=== PATIENT | male | born 2005 | race Caucasian/White ===

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

== ENCOUNTER 2023-07-19 06:39 | Day surgery (SDC) | payer OTHER, SELFPAY ==
[2023-07-12 12:53] VITALS: BMI 23.0
[2023-07-19] VITALS (9 sets, daily range): BP systolic 88–121; BP diastolic 48–75; PULSE 60–87; RESP 12–18; TEMP 36.1–36.4; O2SAT 95–100; BMI 23.7
--- NOTE | 2023-07-19 | PATH_ITS ---
[facility] Accession Number: [id number] No. of containers..01 Tissue . 01 Material submitted: . gluteal cleft - GLUTEAL CLEFT . 01 Diagnosis: A. Gluteal Cleft, Excision: Skin with deep dermal sinus tract with abscess formation, associated extensive chronic inflammation, stromal fibrosis, and evidence of hemorrhage with reactive change, consistent with pilonidal cyst. No evidence of dysplasia or malignancy. MRV 07/26/2023 1652 Local . 01 Electronically signed: . Bria Infante MD, Pathologist NPI- [id number] . 01 Gross description: . The specimen is received in formalin labeled with the patient's name, , and gluteal cleft, consists of an unoriented ellipse of skin measuring 13.6 x 3.0 cm and 1.0 cm thick. The margin is inked blue. Sectioning reveals a cystic structure filled with brown grumous material and hair running longitudinally across a length of 6.9 cm. A resources representative section is submitted in cassette A1. ([id number]) /MRV 07/21/2023 1300 Local . 01 Pathologist provided ICD-10: L05.91 . 01 CPT . 016718 Specimen Comment: A courtesy copy of this report has been sent to [phone] Performed at: 01 [facility] [address] [place] [address], [place], [place] [id number] MD Aftab Dickerson MD Phone: [phone]
[2023-07-19] MEDS: LACTATED RINGERS 1,000 ML 42 ML IV ×2 (07:35→08:41)
--- NOTE | 2023-07-19 07:36 | P.HP_ITS ---
History of Present Illness History of Present Illness Date Patient Seen: 07/19/23 Time Patient Seen: 07:36 Chief complaint: Excision of Pilonidal Cyst Narrative: Jose is a 17-year-old man with a disease. He was consented for a [place] procedure. Please see the office note from December for details. He has had some additional lesions erupt from the gluteal cleft since then. [facility] Medical History Bilateral impacted cerumen Pilonidal cyst Spondylolisthesis at L5-S1 level Social History household members: family Smoking Status: Current some day smoker alcohol intake: current Meds Home Medications and Allergies Home Medications Medication Instructions Recorded Confirmed Type No Known Home Medications 12/07/22 07/19/23 History Allergies Allergy/AdvReac Type Severity Reaction Status Date / Time amoxicillin [AMOXICILLIN] Allergy Mild RASH Verified 07/19/23 07:32 Exam Vital Signs (past 8 hours): - 07/19/23 07:24 Temperature 97.2 F L Pulse Rate 72 Respiratory Rate 18 Blood Pressure 106/75 Pulse Oximetry 100 Oxygen Delivery Method Room Air Oxygen Delivery Method Room Air Const General: healthy appearing Assessment & Plan Assessment and plan (1) Pilonidal cyst: Status: Acute Plan We reviewed the risks and benefits of [place] procedure as well as the expected recovery and he would like to proceed.
--- NOTE | 2023-07-19 08:18 | SUR.OPER ---
Prone on padded OR bed, head in foam head support, gel chest rolls, gel pad under knees, pillow under lower legs, toes free of pressure, arms secured on padded arm boards at <90 degrees abduction. Safety belt at thigh.
[2023-07-19] MEDS: BUPIVACAINE 0.5% (PF) 30 ML, EPINEPHrine 0.15 MG INJ (08:33)
--- NOTE | 2023-07-19 09:20 | P.OP_ITS ---
Operative Date/Time/Diagnoses Date of procedure: 07/19/23 Time of procedure: 09:20 Pre-op diagnosis: Pilonidal disease Post-op diagnosis: same Procedure & Clinicians Procedure: [place] procedure Same procedure as scheduled: Yes Surgeon: Nasir Franks Anesthesia Type: General Operative Notes Procedure in detail: The patient was marked in preop and lines were drawn to delineate the gluteal cleft. The patient was then brought to the operating room and general endotrac heal anesthesia was induced. The patient was placed prone on the or table. The buttocks were taped to the rails of the table. The gluteal cleft and anus were prepped with Betadine and draped in the usual fashion. A time-out was performed. We made the Michael incision with the specimen including the gluteal cleft itself and skin to the right side of the gluteal cleft. We created a flap on the left side. There were many hairs in the subcutaneous tissue. There was chronic appearing granulation tissue mostly to the left side of the gluteal cleft. We injected additional Marcaine in the deepest aspect of the wound as well as in the subcutaneous tissue. A 15 Sinhala round [place] drain was placed into the wound and brought out through a right gluteal stab incision. This drain was secured to the skin with a nylon stitch. The tape was then released and we proceeded to close the incision in layers using multiple interrupted 3-0 Vicryl sutures in the deep layers. The wound came together without tension and 3-0 Vicryl dermal sutures were used to bring the skin flaps together. Finally a running 4 Monocryl subcuticular stitch was used to close the skin and Dermabond was applied. The drain was connected to bulb suction. EBL: 10 mL Post-operative Condition: stable Disposition: PACU
== END 2023-07-19 10:35 | disposition home or self-care (01) ==
PROVIDERS: PCP Family Medicine; Referring Provider Surgery; Visit Provider Surgery
PROC: (CPT 11770; principal; 2023-07-19 07:45)
DX: L05.91 Pilonidal cyst without abscess (principal)
CPT/HCPCS: 11770; J0171; J0330; J0690; J1100; J1885; J2250; J2405; J2704; J3010